=== PATIENT | female | born 1980 | race Caucasian/White ===

== ENCOUNTER 2017-03-04 20:21 | Emergency (ER) | payer OTHER ==
[~2017-03-04] VITALS: Ht 165.1 cm; Wt 55.0 kg
[2017-03-04] MEDS ORDERED: IBUPROFEN 800MG TABLET PO ONE (21:00)
[2017-03-05 00:10] VITALS: BP 128/73
== END 2017-03-05 00:18 | disposition home or self-care (01) ==
LOC: ER 20:54
DX: S93.491A Sprain of other ligament of right ankle, initial encounter (principal); W01.0XXA Fall on same level from slipping, tripping and stumbling without subsequent striking against object, initial encounter; Y93.89 Activity, other specified; Y92.89 Other specified places as the place of occurrence of the external cause; Y99.8 Other external cause status
CPT/HCPCS: 73590; 73610; 81025; 99284; Z7610